=== PATIENT | female | born 1985 | race Caucasian/White ===

== ENCOUNTER 2016-03-12 17:25 | Inpatient (IN) | payer OTHER ==
--- NOTE | 2016-03-12 17:33 | HP ---
SUPERVISING PHYSICIAN: Josie Dominguez MD CHIEF COMPLAINT: Right lower quadrant abdominal pain. HISTORY OF PRESENT ILLNESS: Ms. Juarez is a 31-year-old, female patient of Dr. Wade that was seen in the clinic today for generalized abdominal pain. The patient notes that the pain had started two previously and the pain was sharp, moderate intensity, and located primarily in the right lower quadrant. She notes she has been having some nausea and vomiting for over a month. She also reports subjective fever and her last menstrual period was 02/14/16, but denies any blood in her urine. She does have a history of previous ovarian cyst on the left side. She also reports she has had multiple urinary infections in the past year that have been treated at various urgent care clinics. Laboratory studies initially in the clinic included a urinalysis that showed a significant urinary tract infection with microscopic showing 3+ bacteria and greater than 50 WBCs with chemical analysis showing negative nitrites. CBC showed a leukocytosis of 15.4 with a left shift. Given the patient's acute onset of right lower quadrant pain and laboratory findings consistent with leukocytosis, there was concern the patient may have an underlying urinary tract infection that has advanced to pyelonephritis versus possible appendicitis. Therefore, she was referred to the hospital for admission for definitive treatment and further evaluation to further rule out possibility of acute abdomen with possible appendicitis versus pyelonephritis. She was directly admitted in stable condition. PAST MEDICAL HISTORY: 1. Ovarian cyst on the left in 2006. 2. Mild chronic anemia. 3. Frequent urinary tract infections in the past year PAST SURGICAL HISTORY: 1. Dilatation and curettage in 2006. 2. Ovarian cyst removal in 2006 on the left. CURRENT MEDICATIONS: No chronic medications listed. ALLERGIES: NO KNOWN DRUG ALLERGIES. FAMILY HISTORY: No significant family history contributory to current admission. SOCIAL HISTORY: The patient is single. She just recently moved to [place]. 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 She does smoke currently approximately 1 to 5 cigarettes per day and drinks on a social basis, 1 or 2 weekly on average. She denies any illicit drug use. REVIEW OF SYSTEMS: CONSTITUTIONAL: Positive for fevers, chills, fatigue and night sweats. CARDIOVASCULAR: Denies chest pain or palpitations. RESPIRATORY: She denies any recent cough, dyspnea or any wheezing. GASTROINTESTINAL: As noted n history of present illness with right lower quadrant pain. GENITOURINARY: Positive for dyspareunia, but negative for dysuria, lesions or hematuria. She denies any vaginal discharge. MUSCULOSKELETAL: Positive for arthralgias, myalgias. NEUROLOGIC: Positive for dizziness, but negative for any syncopal episodes or headaches. PHYSICAL EXAMINATION: VITAL SIGNS: Temperature 98.7. Pulse 86. Blood pressure 115/72. Respirations 20. O2 saturation 90% on room air. Admission weight 50.4 kg. GENERAL: The patient is very thin, disheveled in appearance, appears moderately ill and in some pain and very tired. HEENT: Tympanic membranes clear bilaterally. Oropharynx is pink, moist with cracked lips, dry tongue. There are no lesions. NECK: No jugular venous distention noted. CHEST: Lungs clear to auscultation bilaterally without any rhonchi, wheezes, or rales. CARDIOVASCULAR: Regular rate and rhythm without any appreciable murmurs, gallops, or rubs. ABDOMEN: No masses are palpated. She does have some pain upon palpation of the right lower quadrant, but no rebound tenderness or guarding. Bowel sounds are present. There is no notable CVA tenderness bilaterally. EXTREMITIES: There is no cyanosis, clubbing or edema. NEUROLOGIC: The patient is alert and oriented times three. Cranial nerves II- XII are grossly intact. Facial features are symmetric. Extraocular movements are within normal limits. There is no nystagmus. There are no notable motor or sensory neuro deficits. LABORATORY: CBC shows white count of 15,000 with a left shift. Urinalysis this morning in the clinic indicated WBCs on microscopic greater than 50 with 3 + bacteria. test performed in the clinic was negative. Chemistries completed upon admission show potassium 3.4, sodium 137, glucose 74, lactic acid 1.0, calcium 9.6, total bilirubin slightly elevated at 1.3. All other liver functions were within normal limits. Amylase and lipase were both normal. MICROBIOLOGY: Urine culture pending. Blood cultures times two are pending. RADIOLOGY: Abdominopelvic CT with contrast per radiology interpretation showed linear opacity within the left lung which could represent scar versus subsegmental atelectasis. There is also note of a right renal cyst with a 2 cm simple cyst within the right adnexa. There was note of free fluid in the pelvis which could possibly represent blood. The liver, spleen, pancreas, and kidneys were all within normal limits. There was no hydronephrosis or renal stones. The that given was unremarkable as per CT criteria. There was no free fluid within the abdomen, no bowel obstruction, no stranding of the mesenteric fat to suggest inflammatory response, and appendix was within normal limits. There was no pericecal inflammation. Final impression was a 2 cm right adnexal cyst which could represent ovarian cyst with recommendation for a pelvic ultrasound for further evaluation. ASSESSMENT: 1. Acute abdominal pain, right lower quadrant with no evidence of appendicitis on CT exam with concerns for a possible ovarian cyst. 2. Urinary tract infection with concern for early pyelonephritis as the patient has a significant leukocytosis with left shift and fever, nausea and vomiting and a significant urinalysis with microscopic showing greater than 50 WBCs and 3+ bacteria with cultures pending. 3. Nausea and vomiting associated with #1, resulting in dehydration. 4. Moderate dehydration secondary to nausea and vomiting and poor oral intake. 5. Leukocytosis with subjective fever with concerns for early developing of pyelonephritis versus ovarian cyst on the right side. 6. Electrolyte imbalance with mild hypokalemia secondary to dehydration. 7. Elevated total bilirubin, currently unknown etiology with gallbladder showing to be within normal limits on CT studies, felt more likely to be secondary to acute dehydration. 8. Microcytic/hypochromic anemia with a history of chronic anemia with etiology unknown. 9. History of previous ovarian cyst on the left in 2006. PLAN: The patient was directly admitted for continuation of treatment and evaluation of her symptoms with concerns for appendicitis versus pyelonephritis with underlying significant urinary tract infection. The patient had a CT performed and there is no evidence of actual appendicitis noted in the report. There was, again, note of a right sided possible ovarian cyst which will need further evaluation in the morning with a intravaginal pelvic ultrasound. The patient will be started on IV fluids for dehydration with 2 liter bolus for saline to continue with half normal saline and 20 potassium that will run at 100 an hour. She will be given Zofran for nausea and vomiting and pain control with morphine and [place] as needed. She will be started on antibiotics to include Levaquin 500 mg initially with urine culture prior to antibiotic administration as well as blood cultures. We will await urine culture results to further target antibiotic therapy and monitor closely. Anticipate length of stay to be 2 to 3 days. Until discharge, we will continue to monitor the patient closely and treat appropriately. Once discharge, she will need close followup with Dr. Frye. #[id number] [facility]
[2016-03-12] MEDS ORDERED: SODIUM CHLORIDE 0.9% (FLUSH) 10 ML SYG IV PRN (17:40)
[2016-03-12] MEDS ORDERED: ACETAMINOPHEN 325 MG TAB PO PRN (17:40)
[2016-03-12] MEDS ORDERED: SODIUM CHLORIDE 0.9% 1000ML 1,000 ML IVS ONE ×2 (17:46→20:28)
[2016-03-12] MEDS ORDERED: IV SET AND CAP CHANGE INJ INJ SCH (18:00)
--- NOTE | 2016-03-12 18:43 | CT ---
EXAM DESCRIPTION: CT Abdomen/Pelvis w/Contrast CLINICAL HISTORY: RLQ pain and UTI with possible Pyelo COMPARISON: None Available TECHNIQUE: Contiguous axial images of the abdomen and pelvis were obtained after the administration of intravenous contrast followed by reconstruction images. FINDINGS: Linear opacity within the left lung may represent scar versus subsegmental atelectasis. There is a right renal cyst. There is a 2 cm simple cyst within the right adnexa. There is free fluid in the pelvis with Hounsfield units of 50 which could represent blood. The liver, spleen, pancreas and kidneys are within normal limits. There is no hydronephrosis or renal stones. The gallbladder is unremarkable by CT criteria. Adrenal glands are within normal limits. Aorta is of normal caliber and tapering. There is no free fluid in the abdomen. There is no bowel obstruction. There is no stranding of the mesenteric fat to suggest an inflammatory response. The appendix is within normal limits. There is no pericecal inflammation. IMPRESSION: Complex free fluid in the pelvis could represent blood. 2 cm right adnexal cyst could represent an ovarian cyst. In view of patient history of pain in the right lower quadrant, a sonogram could be helpful for further evaluation. Electronically signed by: Portillo Resendiz MD 03/12/2016 4:43 PM PST
[2016-03-12] MEDS: ONDANSETRON INJ 4 MG/2 ML VIAL IV PRN (19:40)
[2016-03-12] MEDS: MORPHINE SULFATE INJ 10 MG/ML VIAL IV PRN (19:52)
[2016-03-12] MEDS ORDERED: levoFLOXacin 500MG IV 500 MG in PREMIX BAG 1 BAG IVPB SCH (21:30)
[2016-03-12] MEDS ORDERED: SODIUM CHL 0.9% 50ML MIN-BAG+ 50 ML IVPB ONE (21:36)
[2016-03-12] MEDS ORDERED: cefTRIAXone SODIUM 1 GM VIAL ONE (21:37)
[2016-03-12] MEDS: NICOTINE PATCH 14 MG TD SCH (21:39)
[2016-03-12] MEDS: cefTRIAXone SODIUM 1 GM in SODIUM CHL 0.9% 50ML MIN-BAG+ 50 ML IVPB SCH (21:39)
[2016-03-12] MEDS: SODIUM CHLORIDE 0.9% (FLUSH) 10 ML SYG IV SCH (21:40)
[2016-03-12] MEDS: KCL 20MEQ/0.45% NS 1,000 ML IVS PRN (21:51)
--- NOTE | 2016-03-12 21:58 | PCM.CORE ---
Physician DVT/VTE - Nurse DVT Assessment & Total Each Risk Factor Represents 3 Points: Medical PT with Hx of CT, CHF, Severe infection/sepsis Each Risk Factor Represents 1 Point: Hx of smoking past year DVT Assessment Score: 4 - 3-4 High Risk Treatments: Early Ambulation *, Sequential Compression Device Pharmacological: Enoxaparin 40 mg SQ Daily
[2016-03-13] MEDS: MORPHINE SULFATE INJ 10 MG/ML VIAL IV PRN ×2 (00:32→05:11)
[2016-03-13] MEDS: ONDANSETRON INJ 4 MG/2 ML VIAL IV PRN ×2 (05:12→23:02)
[2016-03-13] MEDS: KCL 20MEQ/0.45% NS 1,000 ML IVS PRN ×2 (08:14→16:53)
[2016-03-13] MEDS: ENOXAPARIN SODIUM 40 MG/0.4 ML SYG SUBCU SCH (09:05)
[2016-03-13] MEDS: SODIUM CHLORIDE 0.9% (FLUSH) 10 ML SYG IV SCH ×3 (09:06→21:18)
[2016-03-13] MEDS: HYDROcodone 5MG/APAP 325MG 1 EA TAB PO PRN ×4 (09:08→21:54)
[2016-03-13] MEDS ORDERED: diphenhydrAMINE HCL 12.5 MG/5 ML UD ONE (09:50)
[2016-03-13] MEDS: diphenhydrAMINE HCL 12.5 MG/5 ML UD PO PRN ×3 (09:53→21:54)
[2016-03-13] MEDS: BIFIDOBACTERIUM INFANTIS 4 MG CAP PO SCH (10:19)
--- NOTE | 2016-03-13 11:41 | US ---
EXAM DESCRIPTION: Transabdominal pelvic ultrasound CLINICAL HISTORY: right ovarin cyst; follow-up from CT findings COMPARISON: CT performed on March 12, 2016. TECHNIQUE: Transabdominal pelvic US was performed. FINDINGS: Uterus: The uterus is slightly anteverted and measures 8.2 cm in length. The endometrial stripe is not thickened, measuring 8 mm diameter. There is no myometrial mass.. Cervix: Unremarkable. Right Ovary/Right Adnexa: The right ovary measures 4.2 x 3.6 x 3.3 cm. Blood flow is present to the right ovary. There is a 2.7 cm right ovarian cyst with a single thin (less than 3 mm) septation correlating with findings from patient's recent CT. No additional right ovarian or other right adnexal lesion is seen.. Left Ovary/Left Adnexa: The left ovary measures 3.1 x 3.4 x 1.8 cm and contains a few tiny follicles but is otherwise unremarkable. Blood flow is present to the left ovary.. Free Fluid: There is a small amount of free fluid in the cul-de-sac.. IMPRESSION: 2.7 cm right ovarian cyst containing a single thin septation. This is almost certainly physiologic and no further followup is recommended.. Electronically signed by: Osito Melara DO 03/13/2016 11:39
--- NOTE | 2016-03-13 19:39 | PN ---
SUPERVISING PHYSICIAN: Josie Dominguez MD DATE: 03/13/16 SUBJECTIVE: The patient still has some mild right lower quadrant pain, but says it is less in intensity. She has a little bit of nausea, but no vomiting. She remains afebrile. OBJECTIVE: VITAL SIGNS: T-max 98.6. Pulse 89. Blood pressure 124/77. Respirations 27. O2 saturation 99% on room air. I&Os show negative balance of 1453 with 1297 in, 2750 out. Weight 50.4 kg. CHEST: Lungs clear to auscultation bilaterally. HEART: Regular rate and rhythm. ABDOMEN: Soft with some mild tenderness over the right lower quadrant, but no rebound tenderness. Positive bowel sounds. EXTREMITIES: No cyanosis, clubbing or edema. NEUROLOGIC: Alert and oriented times three. LABORATORY: White count has decreased to 11.4, hemoglobin 9.8, hematocrit 31.1 , platelet count 326,000. Differential still without a left shift. Chemistries show normal electrolytes with potassium 4.1, BUN 11, creatinine 0.54 , glucose 82, calcium 9.1. MICROBIOLOGY: Blood cultures times 2 after 24 hours negative. Urine culture pending. RADIOLOGY: Pelvic ultrasound per radiology interpretation indicates a 2.7 cm right ovarian cyst containing a single thin septation that is noted most certainly physiologic with no further followup recommended. ASSESSMENT: 1. Acute abdominal pain, right lower quadrant, prior to admission with no evidence of appendicitis on CT exam with an intravaginal pelvic ultrasound indicating a right ovarian cyst described as physiologic with no recommended followup required with the patient having decrease in her abdominal discomfort, she remains afebrile. 2. Urinary tract infection, initially with concern for early pyelonephritis with cultures pending. 3. Nausea and vomiting associated with #1, resulting in dehydration. 4. Moderate dehydration secondary to nausea and vomiting with poor oral intake, improved after IV therapy. 5. Leukocytosis with subjective fever prior to admission with concern initially for early developing pyelonephritis with now documented ovarian cyst on the right side without any evidence of appendicitis on CT with the patient improving after starting on Levaquin and IV fluids. 6. Electrolyte imbalance with mild hypokalemia secondary to dehydration, improved after IV therapy. 7. Slightly elevated bilirubin, unknown etiology with gallbladder within normal limits on CT studies, most likely secondary to acute dehydration. 8. Microcytic/hypochromic anemia with the patient having history of chronic anemia with etiology unknown, requiring further workup in the outpatient setting. 9. History of previous left ovarian cyst in 2006. PLAN: The patient would certainly benefit from an additional 24 hours of IV antibiotic and further treatment with IV fluids. She will continue with current IV fluids as ordered and then be saline locked later today as she starts to advance her diet and take adequate p.o. fluids. She will continue to be provided with pain medicine as needed and Zofran for nausea. She will be encouraged to ambulate and we will await final urine culture results to further target antibiotic therapy. Anticipate possible discharge tomorrow. Until then , we will continue to monitor the patient closely and treat appropriately. #[id number] [facility]
[2016-03-13] MEDS ORDERED: BISACODYL TAB 5 MG TAB PO ONE (20:10)
[2016-03-13] MEDS ORDERED: SODIUM CHL 0.9% 50ML MIN-BAG+ 50 ML IVPB ONE (20:30)
[2016-03-13] MEDS: NICOTINE PATCH 14 MG TD SCH (20:30)
[2016-03-13] MEDS ORDERED: cefTRIAXone SODIUM 1 GM VIAL ONE (20:30)
[2016-03-13] MEDS: cefTRIAXone SODIUM 1 GM in SODIUM CHL 0.9% 50ML MIN-BAG+ 50 ML IVPB SCH (21:17)
[2016-03-14] MEDS: HYDROcodone 5MG/APAP 325MG 1 EA TAB PO PRN (07:40)
[2016-03-14] MEDS: diphenhydrAMINE HCL 12.5 MG/5 ML UD PO PRN (07:40)
[2016-03-14] MEDS: BIFIDOBACTERIUM INFANTIS 4 MG CAP PO SCH (09:35)
[2016-03-14] MEDS: ENOXAPARIN SODIUM 40 MG/0.4 ML SYG SUBCU SCH ×2 (09:35→09:38)
[2016-03-14] MEDS: SODIUM CHLORIDE 0.9% (FLUSH) 10 ML SYG IV SCH ×2 (09:36)
[2016-03-14] MEDS: MORPHINE SULFATE INJ 10 MG/ML VIAL IV PRN (09:44)
[2016-03-14] MEDS ORDERED: traMADol HCL 50 MG TAB PO ONE (14:56)
[2016-03-14] MEDS ORDERED: CEFDINIR 300 MG CAP PO ONE (14:56)
[2016-03-14 15:22] VITALS: BP 103/66; TEMP 98.6; O2SAT 94
--- NOTE | 2016-03-14 18:19 | DS ---
SUPERVISING PHYSICIAN: Geoff Frye M.D. DISCHARGE DIAGNOSIS: 1. Pyelonephritis. 2. Acute right lower quadrant abdominal pain with no evidence of appendicitis on CT exam. 3. Right ovarian cyst as per pelvic ultrasound measuring 2.7 cm with a single thin septation correlating with findings from the patient's recent CT. 4. Nausea and vomiting that has now resolved most likely due to number 1. 5. Dehydration that is resolved after IV fluid therapy. 6. Leukocytosis with fever prior to admission. 7. Elevated bilirubin, unknown etiology with gallbladder within normal limits on CT studies. May be secondary to acute dehydration. 8. Microcytic hypochromic anemia with the patient having a history of chronic anemia that may require further workup in the outpatient setting. 9. History of previous left ovarian cyst in 2006. HISTORY OF PRESENT ILLNESS: This is a 31 year-old female patient that was seen in Dr. Frye' clinic on date of admission for generalized abdominal pain most prominent in the right lower quadrant. The patient had started 2 days previous to being seen in the clinic. The pain was sharp and moderate in intensity. She had some nausea and vomiting for over a month. She had also reported fever. Her last menstrual period was 02/14/16. She denied any blood in her urine. She has a history of previous ovarian cyst on the left side. She also has a history of multiple upper respiratory tract infections that had been treated at various Urgent Care Clinics. Her urinalysis from [facility] showed 4 + ketones, +1 bilirubin, 2+ blood, 1+ protein, 2+ leukocytes, greater than 50 white cells, 5 to 10 red cells, 3+ bacteria. She also had a CBC done at the clinic that showed a white blood cell count of 15.4, hemoglobin 11.5, hematocrit 35.3, platelets 451. She was sent over as a direct admission to the hospital and she was put on Rocephin. It is to be noted that the urine from [facility] was not cultured. A urine and urine culture was obtained after the start of her antibiotic therapy. HOSPITAL COURSE: The patient improved with IV fluids and antibiotics. She was also given some pain pills. She continued to have some mild right lower quadrant pain but it improved each day. She did complain of some nausea but no further vomiting. She was afebrile during her hospital stay. A pelvic ultrasound was obtained and a 2.7 cm right ovarian cyst was found that was also noted on her pelvic CT. During her stay, her WBCs normalized to 10.5. Her potassium on admission was 3.4 and it normalized to 4.2. Amylase was 28 and lipase was 21. Vital signs remained stable. She will be discharged today. DISCHARGE PLAN: The patient will be discharged home in good condition. Her pain medications were discontinued and she was given 100 mg of Tramadol. She received good relief. Her Rocephin was discontinued and she was started on Cefdinir. I have given her a prescription for Tramadol and Cefdinir 300 mg b.i.d. for a total of 7 days. She is to increase her fluid. She is to have followup with Dr. Frye on 04/05/16 at 10:45 AM and she also has a followup for the ovarian cyst with Dr. Pulido at [facility] on 03/22/16 at 11: 20 AM. She is to followup with Dr. Frye or return to the Emergency Room for any complications. Dr. Frye is the collaborating physician available for consultation. DISCHARGE MEDICATIONS: 1. Cefdinir. 2. Tramadol. #[id number] [facility]
== END 2016-03-14 16:46 | disposition home or self-care (01) | DRG 690 ==
LOC: UNDOADMIN 17:25 → MS 17:25
PROVIDERS: ADMIT Family Medicine; ATTEND Nurse Practitioner Acute Care
PROC: BW21YZZ Computerized Tomography (CT Scan) of Abdomen and Pelvis using Other Contrast (ICD-10-PCS; principal; 2016-03-12)
DX: N10 Acute pyelonephritis (principal); E86.0 Dehydration; E87.6 Hypokalemia; E80.6 Other disorders of bilirubin metabolism; D50.9 Iron deficiency anemia, unspecified; N83.201 Unspecified ovarian cyst, right side; F17.210 Nicotine dependence, cigarettes, uncomplicated